=== PATIENT | male | born 1955 | race Caucasian/White ===

== ENCOUNTER 2017-01-11 01:12 | Inpatient (IN) | payer OTHER ==
[~2017-01-11] VITALS: Ht 160 cm; Wt 62.1 kg
[~2017-01-11 01:12] MED LIST: CARDURA4 M1 PO
[2017-01-11] MEDS ORDERED: MS CONTIN30 M1 PO (09:31)
[2017-01-11] MEDS ORDERED: MIRALAX17 G1 PO (09:31)
[2017-01-11] MEDS ORDERED: DILAUDID2 M1 PO (09:31)
[2017-01-11] MEDS ORDERED: PRILOSEC OTC20 M1 PO (09:31)
[2017-01-11] MEDS ORDERED: COLACE100 M1 PO (09:31)
[2017-01-11] MEDS ORDERED: ASPIRIN EC325 M2 PO (09:31)
--- NOTE | 2017-01-11 09:43 | Patient Discharge Instructions ---
Discharge Instructions General Discharge Information You were seen/treated for: ARTHRITIS You had these procedures: RIGHT TOTAL HIP REPLACEMENT Watch for these problems: CALL IF FEVER GREATER THAN 101.5, REDNESS OR DRAINAGE AROUND INCISION , INCREASING PAIN NOT RESPONDING TO PAIN MEDS, DIFFICULTY AMBULATING FROM BASELINE Do not soak the wound: Yes Daily wet to dry dressings: No No bath, but you may shower: Yes Other wound care: kEEP WOUND DRY Diet Continue normal diet: Yes Recommended Diet: Regular Activity Full Activity/No Limits: Yes ( TOLERATED) Activity Self Limited: No Pounds, do NOT lift more than: 10 Activity Limited to: Weight bear as tolerated Acute Coronary Syndrome Inclusion Criteria At DC or during hospital stay patient has or had the following: ACS DIAGNOSIS No Discharge Core Measures Meds if any: Prescribed or Continued at Discharge RIGO/ARB if EF <40% No Beta-Stone No Statin No Meds if any: NOT Prescribed or Continued at Discharge Congestive Heart Failure Inclusion Criteria At DC or during hospital stay patient has or had the following: CHF DIAGNOSIS No Discharge Core Measures Meds if any: Prescribed or Continued at Discharge RIGO/ARB for EF <40% No Meds if any: NOT Prescribed or Continued at Discharge Cerebrovascular accident Inclusion Criteria At DC or during hospital stay patient has or had the following: CVA/TIA Diagnosis No Discharge Core Measures Meds if any: Prescribed or Continued at Discharge Antithrombotic No Statin (required if LDL =>70) No Anticoagulant No Meds if any: NOT Prescribed or Continued at Discharge Venous thromboembolism Inclusion Criteria VTE Diagnosis No VTE Type NONE VTE Confirmed by (Test) NONE Discharge Core Measures - Per Current guidelines, there needs to be overlap - treatment for the first 5 days of Warfarin therapy. - If discharged on Warfarin prior to 5 days of - overlap therapy, the patient will need to be - assessed for post discharge needs including - *Post discharge parental anticoagulation - *Warfarin and/or parental anticoagulation education - *Follow up date to check INR post discharge At least 5 days overlap therapy as Inpatient No Meds if any: Prescribed or Continued at Discharge Warfarin No Note: Overlap Therapy is Warfarin and Anticoagulant Meds if any: NOT Prescribed or Continued at Discharge
--- NOTE | 2017-01-11 09:47 | Admission Core Measures ---
Admission Meds I reviewed the following Meds: Current Medications Sig/Nelson Start time Last Medication Dose Stop Time Status Admin Acetaminophen 975 MG ONCE 01/11 NR (Tylenol) 01/11 2359 Cefazolin Sodium 2,000 MG ONCE 01/11 NR (Kefzol-Ancef Inj) 01/11 2359 Doxazosin Mesylate 4 MG DAILY 01/12 1000 AC (Cardura) Oxycodone HCl 10 MG ONCE 01/11 NR (Roxicodone) 01/11 2359 Acute Coronary Syndrome Inclusion Criteria ACS Diagnosis No Inpatient Core Measures LDL Reminder: If No, please order W/I first 24hr of stay Congestive Heart Failure Inclusion Criteria CHF Diagnosis No Cerebrovascular accident Inclusion Criteria CVA/TIA Diagnosis No Inpatient Core Measures Bedside Swallow Eval Reminder: If BSE failed, place ST order Antithrombotic Reminder: Order Antithrombotic Medication by end of day 2 Antithrombotic Reminder: Document Reason Antithrombotic Not ordered by end of day 2 AFIB/Flutter Reminder: If Present, add to problem list AFIB/Flutter Reminder: Order Anticoag Medication for pts with AFIB/Flutter Atherosclerosis Reminder: If Present, add to problem list LDL Reminder: If No, please order W/I first 24hr of stay PT Order Reminder: If No, please order Venous thromboembolism Inpatient Core Measures VTE Risk Factors: Age > 40, Surgery No [facility] VTE prophylaxis d/t No contraindications No VTE Pharm Prophylaxis d/t No contraindications Inclusion Criteria - Per Current guidelines, there needs to be overlap - treatment for the first 5 days of Warfarin therapy. - Parenteral Anticoagulation (IV or SC) needs to be - given along with Warfarin therapy. VTE Diagnosis No VTE Type NONE VTE Confirmed by (Test) NONE Problem List As ranked by this Provider includes Assessment & Plan 1. Unilateral primary osteoarthritis, right hip HOME MEDS Home Med List Aspirin (Ecotrin*) 325 MG TABLET.DR 1 TAB PO BID ANTICOAGULATION Docusate Sodium (Colace) 100 MG CAPSULE 1 CAP PO BID CONSITPATION Doxazosin Mesylate (Cardura) 4 MG TABLET 1 TAB PO DAILY PROSTATE (Reported) Hydromorphone HCl (Dilaudid) 2 MG TABLET 1-2 TAB PO Q4-6 PRN PAIN Morphine Sulfate (Ms Contin) 30 MG TABLET.ER 1 TAB PO BID PAIN Omeprazole Magnesium (Prilosec Otc) 20 MG TABLET.DR 1 TAB PO DAILY GI PROTECTION Polyethylene Glycol 3350 (Miralax) 17 GRAM POWD.PACK 1 PAC PO DAILY CONSTIPATION
--- NOTE | 2017-01-11 09:57 | Surgical Discharge Summary ---
Visit Information Visit Dates Admission Date: 01/11/17 Discharge Date: 01/11/17 History of Present Illness Chief Complaint: RIGHT HIP PAIN Medical History Isolation History: Standard Surgical History Pertinent Surgical History: non-contributory Review of Systems: SEE h&p Hospital Course Course Attending Physician: TINY MIRELES MD Primary Care Physician: BEATRIZ WEBSTER MD Hospital Course: 61 Y O MALE MALE WITH HX OF OA PRESENTED FOR ELECTIVE R HIP REPLACEMENT. HIS INTRAOP AND POST OP COURSE HAS BEEN STABLE. HIS DIET WAS ADVANCED TO REGAULAR WHICH HE TOLERATES WELL. PT'S PAIN WAS WELL MANAGED WITH ORAL NARCOTICS. HIS DRESSING OVER WOUND WAS C/D/I. PT. HAD GOOD DISTAL PERIPHERAL PERFUSION. HIS NEUROLOGICAL FXN OF R HIP WAS ADEQUATE.VITAL SIGNS WERE STABLE / WNL. PT. VOIDED SPONTANEOUSLY. PATIENT WAS EVALUATED BY PHYSICAL THERAPY FOR DISPOSITION Complications: None Allergies: Coded Allergies: No Known Allergies (01/07/17) Disposition Summary Disposition Principal Diagnosis: UNILATERAL OSTEOARTHRITIS R HIP Additional Diagnosis: NONE Discharge Disposition: home health services Discharge Instructions General Discharge Information Code Status: Full Code Patient's Diet: REGULAR, ADVANCE TOLERATED Patient's Activity: WEIGHT BEAR TOLERATED Follow-Up Instructions/Appts: 6 WEEKS FROM DATE OF SURGERY Medications at Discharge Discharge Medications: Continue taking these medications: Doxazosin Mesylate (Cardura) 4 MG TABLET 1 Tablet ORAL DAILY Start taking the following new medications: Aspirin (Ecotrin*) 325 MG TABLET.DR 1 Tablet ORAL TWICE DAILY Qty = 60 No Refills Hydromorphone HCl (Dilaudid) 2 MG TABLET 1-2 Tablet ORAL EVERY 4-6 HOURS as needed for PAIN Qty = 36 No Refills Morphine Sulfate (Ms Contin) 30 MG TABLET.ER 1 Tablet ORAL TWICE DAILY Qty = 6 No Refills Polyethylene Glycol 3350 (Miralax) 17 GRAM POWD.PACK 1 Packet ORAL DAILY Qty = 7 No Refills Instructions: dissolve in water, DISCONTINUE USE IF YOU DEVELOP LOOSE STOOL OR DIARRHEA Docusate Sodium (Colace) 100 MG CAPSULE 1 Capsule ORAL TWICE DAILY Qty = 14 No Refills Instructions: DISCONTINUE USE IF YOU DEVELOP LOOSE STOOL OR DIARRHEA Omeprazole Magnesium (Prilosec Otc) 20 MG TABLET.DR 1 Tablet ORAL DAILY Qty = 30 No Refills Copies To: ELEANOR BAGLEY,BEATRIZ Frazier
[2017-01-11 10:00] VITALS: BP 84/54
--- NOTE | 2017-01-11 10:00 | RADIOLOGY REPORT ---
EXAMINATION: XR HIP, RIGHT CLINICAL INFORMATION: Hip replacement COMPARISON: None TECHNIQUE: Two views of the right hip. FINDINGS: There is a total right hip arthroplasty. The femoral head component articulates appropriately with the acetabular component. No periprosthetic lucency or fracture. Postoperative soft tissue gas is noted. IMPRESSION: Normal postoperative appearance of the right total hip prosthesis.
--- NOTE | 2017-01-11 10:15 | NUR ---
ADMITTING NOTE: PATIENT ARRIVED TO THE FLOOR ALERT AND ORIENTED X 3, NO C/O PAIN OR NAUSEA. NUMBNESS FROM WAIST DOWN R/T SPINAL ANETHESIA. PT PIVOTED PATIENT FROM STRETCHER TO CHAIR. VS FOLLOWS: BP 84/54, HR 52, TEMP 97.7 99% ON RA RR 16. PA MADE AWARE OF BP, PATIENT ASYMPTOMATIC AT THIS TIME. PA TO ORDER 500ML FLUID BOLUS. NURSE MIDDLEWARE ARCHITECT Freddie WILSON MADE AWARE AND ASSISTED THIS RN MOVING PATIENT FROM HARD CHAIR TO RECLINER TO ELEVATE PATIENTS LEGS. STILL NO SYMPTOMS NOTED WITH MOVEMENT. WILL MONITOR AND FOLLOW UP AND RECHECK B/P AFTER FLUID BOLUS COMPLETE.
--- NOTE | 2017-01-11 12:30 | NUR ---
PATIENT BP REMAINS 84/50, ASYMPTOMATIC, PA AWARE, SECOND 500ML FLUID BOLUS ORDERED. WILL CHECK ORTHOSTATIC V/S WHEN PT ATTEMPTS TO AMBULATE PATIENT, WILL CLOSELY MONITOR WITH EXTRA STAFF PRESENT FOR AMBULATION. SUSANA BP LOW AT BASELINE, REPORTED TO BE IN LOW 100'S PER BALL HOLDERDANIELLE VERA. WILL CONTINUE TO MONITOR.
--- NOTE | 2017-01-11 13:27 | PN- Orthopedic ---
Subjective Subjective: POST-OP NOTE: No complaints. Nurse called earlier about asymptomatic hypotension (bp 84/54), which has since improved after a bolus of 500 mls normal saline to sbp 90. Apparently his baseline blood pressure is 100s. Currently out of bed to chair, but awaiting re-eval by PT for clearance to home today. Tolerating diet. No nausea. Denies shortness of breath. No chest pains. Due to void prior to discharge home. Objective Vital Signs and I&Os Vital Signs Date Time Temp Pulse Resp B/P Pulse O2 O2 Flow FiO2 Ox Delivery Rate 01/11 1000 97.7 52 16 84/54 99 Room Air Intake & Output 01/11 1600 01/11 0800 01/11 0000 01/10 1600 01/10 0800 01/10 0000 Intake Total Output Total Balance Patient 137 lb Weight Physical Exam: General - alert & oriented x 3. comfortable. no acute distress. Lungs - clear bilaterally. no w/r/r. Cardiac - s1s2. slightly bradycardic, rate 50s Abdomen - soft. nontender. Extremities - warm bilaterally. right hip dressing c/d/i. no hematoma. nvi. calves soft and nontender. Assessment/Plan Assessment/Plan This 61 year old white male hx bph POD#0 s/p right total hip replacement, anterior approach asymptomatic hypotension improved s/p fluid bolus 500 mls. repeat x 1 pain control as needed asa 325mg bid PT to re-assess for clearance to home bowel regime ordered due to void prior to discharge ron-operative ancef x 2 doses discharge to home pending PT eval & able to void will d/w Core Measures/Miscellaneous Venous Thromboembolism VTE Risk Factors: Age > 40, Surgery VTE Contraindications: No Contraindications VTE Diagnosis: No VTE Type: NONE VTE Confirmed by (Test): NONE Beta Stone Is Beta Stone a Home Med? No Antibiotics Is Patient on Antibiotics? Yes If Yes: prophylaxis
[2017-01-11 14:00] VITALS: BP 90/50
--- NOTE | 2017-01-11 16:04 | Operative Report ---
Operative/Inv Procedure Report Surgery Date: 01/11/17 Name of Procedure: Right total hip replacement Pre-Operative Diagnosis: Primary right hip DJD Post-Operative Diagnosis: Same Estimated Blood Loss: 300 Surgeon/Commercial Trailer Truck Driver: CHI BAGLEY,TINY Doan Anesthesia: block Operative/Procedure Note Note: Description of Procedure: The patient was taken to the operating room and positively identified. After induction of spinal anesthesia and administration of appropriate pre-operative antibiotics, the patient was positioned supine on the operating room table and all bony prominences were well padded. After performing a surgical timeout, the right lower extremity was prepped and draped in the usual sterile fashion. A direct anterior approach was made to the right hip. The incision was carried sharply through superficial soft tissues to the level of the fascia. Meticulous hemostasis was maintained with Bovie electocautery. The fascia over the tensor fascia douglas muscle was opened sharply and the interval between the TFL and the sartorius was entered bluntly taking care to stay lateral to the lateral femoral cutaneous nerve. Retractors were placed around the femoral neck and the pericapsular fat was identified. The ascending branches of the lateral femoral circumflex vessels were identified and carefully coagulated. The pericapsular fat and anterior capsule were then resected. A napkin ring osteotomy was performed and the femoral head was removed without difficulty. Attention was then turned to the acetabulum. After appropriate placement of retractors, the acetabulum was exposed. Soft tissue was cleaned from the acetabular margin and notch. Overhanging osteophytes were removed and the teardrop was exposed. The acetabulum was then sequentially reamed to accept a 58 mm Abhijit Tritanium hemispherical solid back shell. This was impacted into place in the appropriate position and fitted with a 36 mm Trident X3 zero degree polyethylene insert. Attention was then turned to the femur. After performing the appropriate ligament releases, the proximal femur was exposed. It was then sequentially broached to accept a size 4 [place] Anato stem. This was trialed for leg length and stability. The trial component was removed and the final component was impacted into place. The trunnion was carefully cleaned and fit with a 36 mm, - 2.5 Biolox delta ceramic femoral head. The hip was reduced and put through a full range of motion and found to be stable. The articular space was then irrigated with sterile saline. The periarticular soft tissues were infilitrated with Marcaine. The fascial layer was closed with interrupted #1 vicryl suture and the skin was re-approximated with interrupted 2 -0 vicryl. The skin was closed with a running 3-0 V-Lock suture. Steri-strips and a sterile dressing were applied. The patient was awakened and taken to the recovery room in satisfactory condition.
== END 2017-01-11 15:10 | disposition home health service (06) | DRG 470 ==
LOC: ENRESERVTM → ENRESERVDT → ENPENDDIS 01:12 → SDA 01:12 → 2NB 10:14
PROVIDERS: ADMIT Orthopaedic Surgery
PROC: 0SR904A Replacement of Right Hip Joint with Ceramic on Polyethylene Synthetic Substitute, Uncemented, Open Approach (ICD-10-PCS; principal; 2017-01-11)
DX: M16.11 Unilateral primary osteoarthritis, right hip (principal); N40.0 Benign prostatic hyperplasia without lower urinary tract symptoms
CPT/HCPCS: 2NBP; 73502-RT; 88304; 97110-GO; 97116-GO; 97161-GP; 97530-GO; J0690; J0735; J2550; J7040; J7042